=== PATIENT | male | born 1990 | race Caucasian/White ===

== ENCOUNTER 2017-10-27 15:16 | Emergency (ER) | payer SELFPAY ==
[~2017-10-27] VITALS: Ht 167.6 cm; Wt 83.5 kg
[2017-10-27 15:34] VITALS: Ht 167.6 cm; Wt 83.5 kg
[2017-10-27 17:48] VITALS: BP 140/84
== END 2017-10-27 17:48 | disposition home or self-care (01) ==
LOC: ED 15:16
DX: S80.02XA Contusion of left knee, initial encounter (principal); W22.8XXA Striking against or struck by other objects, initial encounter; Y93.89 Activity, other specified; Y92.89 Other specified places as the place of occurrence of the external cause; Y99.8 Other external cause status